=== PATIENT | male | born 1950 | race African-American/Black ===

== ENCOUNTER 2019-12-26 07:59 | Emergency (ER) | payer MEDICARE ==
[~2019-12-26] VITALS: Ht 185.4 cm; Wt 94.2 kg
--- NOTE | 2019-12-26 08:19 | NUR ---
69 Y/O MALE PRESENTS TO ED WITH C/O BILATERAL LOWER LEG EDEMA. PER PT "IT'S BEEN GETTING MORE SWOLLEN FOR ABOUT A WEEK. MY RIGHT LEG DOESN'T HURT. BUT MY LEFT ONE HURTS BEHIND MY KNEE." NO C/O N/V/D, TRAUMA, SYNCOPE, CP, SOB. EDPA BEDSIDE. PT PLACED ON CONT PULSE OX,NIBP. PT GIVEN WARM BLANKETS. CALL LIGHT WITHIN REACH. NO OTHER NEEDS REQUESTED AT THIS TIME.
[2019-12-26 08:47] LABS: ALANINE AMINOTRANSFERASE 30 U/L (12-78); ALBUMIN 3.2 g/dL (3.4-5.0); ANION GAP 7 mmol/L (5-15); CALCIUM 8.7 mg/dL (8.5-10.1); CHLORIDE 108 mmol/L (98-107); CREATININE 1.09 mg/dL (0.7-1.3)
[2019-12-26 08:48] LABS: BASOPHILS # (AUTO) 0.02 x10^3/uL (0-0.1); BASOPHILS % (AUTO) 0 % (0-1); EOSINOPHILS # (AUTO) 0.15 x10^3/uL (0-0.4); EOSINOPHILS % (AUTO) 2 % (1-7); LYMPHOCYTES # (AUTO) 1.94 x10^3/uL (1-3.4); LYMPHOCYTES % (AUTO) 19 % (22-44); MD NO; MEAN CORPUSCULAR HEMOGLOBIN 29.4 pg (27.5-34.5); MEAN CORPUSCULAR HGB CONC 32.1 g/dL (33.2-36.2); MEAN PLATELET VOLUME 7.3 fL (7.4-10.4); MONOCYTES # (AUTO) 1.05 x10^3/uL (0.2-0.8); MONOCYTES % (AUTO) 10 % (2-9); NEUTROPHILS # (AUTO) 6.99 x10^3/uL (1.8-6.8); NEUTROPHILS % (AUTO) 69 % (42-75); PLATELET COUNT 225 x10^3/uL (130-400); RED BLOOD COUNT 5.04 x10^6/uL (4.38-5.82)
[2019-12-26 08:51] LABS: ALKALINE PHOSPHATASE 102 U/L (45-117); BILIRUBIN,TOTAL 0.8 mg/dL (0.2-1.0); TOTAL PROTEIN 7.8 g/dL (6.4-8.2)
--- NOTE | 2019-12-26 09:00 | NUR ---
PT OUT OF ROOM AT IMAGING
--- NOTE | 2019-12-26 09:29 | NUR ---
PT BACK FROM IMAGING
[2019-12-26 09:46] VITALS: BP 138/93
--- NOTE | 2019-12-26 09:46 | NUR ---
PT RESTING ON GURNEY. KOTHARI. PT STATES ULTRASOUND HAS BEEN DONE AND XRAYS. VSS. NO NEEDS REQUESTED AT THIS TIME.
[2019-12-26] MEDS ORDERED: LIDOCAINE-MPF 1%, 5ML ONE (10:04)
--- NOTE | 2019-12-26 10:37 | NUR ---
PT RESTING ON GURNEY. PT READY FOR ARTHROCENTISIS. NADN. NO OTHER NEEDS REQUESTED AT THIS TIME.
--- NOTE | 2019-12-26 11:19 | NUR ---
pt given cane. pt educated regarding use. pt provides excellent demonstration skills. pt ambulatory with steady gait using cane. Patient/Caregiver given discharge instructions and they have confirmed that they understand the instructions. pt left with all personal belongings.
== END 2019-12-26 11:26 | disposition home or self-care (01) ==
LOC: ED 10:17
DX: M25.462 Effusion, left knee (principal); R60.0 Localized edema; R94.31 Abnormal electrocardiogram [ECG] [EKG]; I10 Essential (primary) hypertension; E11.9 Type 2 diabetes mellitus without complications; E78.00 Pure hypercholesterolemia, unspecified
CPT/HCPCS: 20610; 36415; 80053; 83880; 85025; 93005; 99285

== ENCOUNTER 2020-01-09 09:20 | Emergency (ER) | payer MEDICARE ==
[~2020-01-09] VITALS: Ht 185.4 cm; Wt 93.2 kg
[2020-01-09 09:22] VITALS: BP 120/75
--- NOTE | 2020-01-09 09:39 | NUR ---
FIRST CONTACT WITH PT. PT C/O LEFT KNEE SWELLING. SEEN APPROX 2 WEEKS AGO FOR SAME. "DRAINED KNEE" PT DENIES ANY OTHER SX. PT'S AOX4. RESPS EVEN AND UNLABORED. EDMD AT BEDSIDE EVALUATING AT THIS TIME.
--- NOTE | 2020-01-09 10:03 | NUR ---
Patient given discharge instructions and they have confirmed that they understand the instructions. Patient ambulatory with steady gait.
== END 2020-01-09 10:04 | disposition home or self-care (01) ==
LOC: ED 09:50
DX: G89.29 Other chronic pain (principal); M13.162 Monoarthritis, not elsewhere classified, left knee; I10 Essential (primary) hypertension; E11.9 Type 2 diabetes mellitus without complications
CPT/HCPCS: 99282

== ENCOUNTER 2020-06-26 09:47 | Emergency (ER) | payer MEDICARE, OTHER ==
[~2020-06-26] VITALS: Ht 185.4 cm; Wt 102.7 kg
--- NOTE | 2020-06-26 10:17 | NUR ---
Pt ambulatory to bathroom for UA with steady gait.
[2020-06-26 10:24] LABS: BASOPHILS % (AUTO) 1 % (0-1); EOSINOPHILS % (AUTO) 3 % (1-7); LYMPHOCYTES % (AUTO) 25 % (22-44); MEAN CORPUSCULAR HEMOGLOBIN 29.1 pg (27.5-34.5); MEAN CORPUSCULAR HGB CONC 33.3 g/dL (33.2-36.2); MEAN PLATELET VOLUME 7.1 fL (7.4-10.4); MONOCYTES % (AUTO) 10 % (2-9); NEUTROPHILS % (AUTO) 61 % (42-75); PLATELET COUNT 262 x10^3/uL (130-400); RED BLOOD COUNT 5.39 x10^6/uL (4.38-5.82); RED CELL DISTRIBUTION WIDTH 15.1 % (9.4-14.8)
--- NOTE | 2020-06-26 10:25 | NUR ---
Pt denies any symptoms besides gaining weight. State prior to COVID lock-down he would go to the gym 5 days a week to swim, "COVID's made me lazy." Pt connected to BP and O2 monitors. Call light in reach. All needs met at this time.
[2020-06-26 10:26] LABS: MD NO
[2020-06-26 10:38] LABS: ALBUMIN 3.6 g/dL (3.4-5.0); CALCIUM 9.2 mg/dL (8.5-10.1)
[2020-06-26 10:38] LABS: MICROSCOPIC INDICATED
[2020-06-26 10:41] LABS: ALANINE AMINOTRANSFERASE 35 U/L (12-78); ALKALINE PHOSPHATASE 98 U/L (45-117); BILIRUBIN,TOTAL 0.8 mg/dL (0.2-1.0); CREATININE 1.19 mg/dL (0.7-1.3); TOTAL PROTEIN 8.2 g/dL (6.4-8.2)
[2020-06-26 10:49] LABS: ANION GAP 7 mmol/L (5-15); CHLORIDE 106 mmol/L (98-107)
[2020-06-26 12:30] VITALS: BP 165/97
[2020-06-26] MEDS ORDERED: OMNIPAQUE 350 MG/ML, 100ML BOTTLE ONE (12:44)
== END 2020-06-26 12:31 | disposition home or self-care (01) ==
LOC: ED 10:36
DX: R63.5 Abnormal weight gain (principal); Z68.29 Body mass index [BMI] 29.0-29.9, adult
CPT/HCPCS: 36415; 74177; 80053; 81001; 83690; 85025; 99284; Q9967

== ENCOUNTER 2021-02-11 08:38 | Inpatient (IN) | payer OTHER ==
[~2021-02-11] VITALS: Ht 190.5 cm; Wt 96.8 kg
[2021-02-11] MEDS ORDERED: DILTIAZEM 5 MG/ML, 5ML ONE (09:19)
[2021-02-11] MEDS ORDERED: ASPIRIN 81 MG TABLET CHEW ONE (09:19)
--- NOTE | 2021-02-11 09:22 | NUR ---
FIRST CONTACT: PT HERE WITH AFIB RVR STARTED MIDDLE OF NIGHT. PT TO ROOM WITH STEADY GAIT. ATTACHED TO MONITORS. DR. HARRIS TO BEDSIDE FOR EVALUATION. THIS RN TO PUSH 20 MG OF DILT.
[2021-02-11] MEDS ORDERED: SODIUM CHLORIDE FLUSH 10ML SYR IVF ONE (09:30)
[2021-02-11] MEDS ORDERED: DILTIAZEM 5 MG/ML, 5ML IV ONE (09:30)
[2021-02-11] MEDS ORDERED: ASPIRIN 81 MG TABLET CHEW PO ONE (09:30)
[2021-02-11 09:53] LABS: BASOPHILS % (AUTO) 1 % (0-1); EOSINOPHILS % (AUTO) 1 % (1-7); LYMPHOCYTES % (AUTO) 16 % (22-44); MEAN CORPUSCULAR HEMOGLOBIN 29.9 pg (27.5-34.5); MEAN CORPUSCULAR HGB CONC 33.2 g/dL (33.2-36.2); MEAN PLATELET VOLUME 7.9 fL (7.4-10.4); MONOCYTES % (AUTO) 10 % (2-9); NEUTROPHILS % (AUTO) 72 % (42-75); PLATELET COUNT 194 x10^3/uL (130-400); RED BLOOD COUNT 5.32 x10^6/uL (4.38-5.82); RED CELL DISTRIBUTION WIDTH 14.8 % (9.4-14.8)
[2021-02-11 10:02] LABS: ALANINE AMINOTRANSFERASE 56 U/L (12-78); ALBUMIN 3.5 g/dL (3.4-5.0); ANION GAP 8 mmol/L (5-15); CALCIUM 9.3 mg/dL (8.5-10.1); CHLORIDE 106 mmol/L (98-107); CREATININE 1.07 mg/dL (0.7-1.3)
[2021-02-11 10:07] LABS: ALKALINE PHOSPHATASE 100 U/L (45-117); BILIRUBIN,TOTAL 1.3 mg/dL (0.2-1.0); TOTAL PROTEIN 7.9 g/dL (6.4-8.2); TROPONIN I 0.061 ng/mL (0.000-0.045)
[2021-02-11] MEDS ORDERED: FUROSEMIDE 40 MG/4 ML IV ONE (10:30)
[2021-02-11] MEDS ORDERED: SODIUM CHLORIDE FLUSH 10ML SYR IVF PRN (10:30)
[2021-02-11] MEDS ORDERED: Enoxaparin 1 mg/kg protocol SQ SCH (10:30)
[2021-02-11] MEDS ORDERED: BISACODYL 5 MG EC TABLET PO PRN (11:00)
[2021-02-11] MEDS ORDERED: BISACODYL 10 MG SUPP PR PRN (11:00)
[2021-02-11] MEDS ORDERED: ENOXAPARIN 100 MG/ML SQ SCH ×2 (11:00→23:00)
[2021-02-11] MEDS ORDERED: ONDANSETRON 2MG/ML, 2ML IV PRN (11:00)
[2021-02-11] MEDS ORDERED: DILTIAZEM 125 MG in SODIUM CHLORIDE 0.9% 100 ML IV PRN (11:00)
[2021-02-11] MEDS ORDERED: ACETAMINOPHEN 650 MG/20.3 ML UDC PO PRN (11:00)
--- NOTE | 2021-02-11 11:04 | NUR ---
hospitalist at bedside. yellow med req slip send to pharm for dilt gtt.
[2021-02-11] MEDS ORDERED: ENOXAPARIN 100 MG/ML ONE (11:05)
[2021-02-11 11:37] LABS: CHOL/HDL RATIO 2.8; FREE T4 (FREE THYROXINE) 1.19 ng/dL (0.76-1.46); LDL/HDL RATIO 1.4 (0.5-3.0)
--- NOTE | 2021-02-11 12:14 | NUR ---
dilt gtt icreased to 6 mg. hr 130's
--- NOTE | 2021-02-11 13:05 | NUR ---
dilt gtt increased to 7mg
--- NOTE | 2021-02-11 14:42 | NUR ---
report called to leisa estrada.
[2021-02-11 16:27] VITALS: BP 163/99
[2021-02-11] MEDS ORDERED: EMTR1TAB14 PO (16:35)
[2021-02-11] MEDS ORDERED: LISI-606 PO (16:35)
[2021-02-11] MEDS ORDERED: DOLU50TA PO (16:35)
[2021-02-11 19:09] LABS: TROPONIN I 0.037 ng/mL (0.000-0.045)
[2021-02-11] MEDS: SODIUM CHLORIDE FLUSH 10ML SYR IVF SCH (20:50)
[2021-02-11 21:17] VITALS: BP 171/103
[2021-02-12 00:40] VITALS: BP 164/111
[2021-02-12] MEDS ORDERED: LISINOPRIL 5 MG TABLET PO SCH (01:00)
[2021-02-12 06:09] LABS: CHLORIDE 108 mmol/L (98-107)
[2021-02-12 06:18] LABS: ALANINE AMINOTRANSFERASE 48 U/L (12-78); ALBUMIN 2.9 g/dL (3.4-5.0); ALKALINE PHOSPHATASE 85 U/L (45-117); ANION GAP 9 mmol/L (5-15); BILIRUBIN,TOTAL 1.5 mg/dL (0.2-1.0); CALCIUM 8.8 mg/dL (8.5-10.1); CREATININE 0.79 mg/dL (0.7-1.3); TOTAL PROTEIN 6.9 g/dL (6.4-8.2)
[2021-02-12 08:58] VITALS: BP 148/92
[2021-02-12] MEDS: APIXABAN 5 MG TABLET PO SCH ×2 (09:51→20:06)
[2021-02-12] MEDS: ASPIRIN 325 MG TABLET EC PO SCH (09:51)
[2021-02-12] MEDS: FUROSEMIDE 40 MG TABLET PO SCH (09:51)
[2021-02-12] MEDS: DILTIAZEM 120 MG TABLET PO SCH ×2 (09:51→20:06)
[2021-02-12] MEDS: LISINOPRIL 20 MG TABLET PO SCH (09:51)
[2021-02-12] MEDS: SODIUM CHLORIDE FLUSH 10ML SYR IVF SCH ×2 (09:52→20:09)
[2021-02-12] MEDS: DOLUTEGRAVIR 50MG TAB PO SCH (09:52)
[2021-02-12] MEDS: EMTRICITABINE/TEN. ALAFE. 200-25 TAB PO SCH (09:52)
[2021-02-12] MEDS ORDERED: DILTIAZEM 125 MG in SODIUM CHLORIDE 0.9% 100 ML IV PRN ×2 (11:00)
[2021-02-12 14:10] VITALS: BP 137/80
[2021-02-12] MEDS ORDERED: POTASSIUM CHLORIDE 20 MEQ PACKET PO SCH (16:00)
[2021-02-12 20:02] VITALS: BP 161/84
[2021-02-12] MEDS: MAGNESIUM OXIDE 400 MG TABLET PO SCH (20:06)
[2021-02-13 00:44] VITALS: BP 128/76
[2021-02-13 05:55] LABS: BASOPHILS % (AUTO) 1 % (0-1); EOSINOPHILS % (AUTO) 2 % (1-7); LYMPHOCYTES % (AUTO) 18 % (22-44); MEAN CORPUSCULAR HEMOGLOBIN 29.9 pg (27.5-34.5); MEAN PLATELET VOLUME 7.4 fL (7.4-10.4); MONOCYTES % (AUTO) 12 % (2-9); NEUTROPHILS % (AUTO) 68 % (42-75); PLATELET COUNT 185 x10^3/uL (130-400); RED CELL DISTRIBUTION WIDTH 14.6 % (9.4-14.8)
[2021-02-13 06:05] LABS: ANION GAP 7 mmol/L (5-15); CALCIUM 8.3 mg/dL (8.5-10.1); CHLORIDE 106 mmol/L (98-107)
[2021-02-13] MEDS ORDERED: APIX5TAB PO (07:16)
[2021-02-13] MEDS ORDERED: LISI-170 PO (07:16)
[2021-02-13] MEDS ORDERED: DILT120T3 PO (07:16)
[2021-02-13 07:21] VITALS: BP 117/79
[2021-02-13] MEDS: DILTIAZEM 120 MG TABLET PO SCH (08:27)
[2021-02-13] MEDS: LISINOPRIL 20 MG TABLET PO SCH (08:27)
[2021-02-13] MEDS: MAGNESIUM OXIDE 400 MG TABLET PO SCH (08:27)
[2021-02-13] MEDS: EMTRICITABINE/TEN. ALAFE. 200-25 TAB PO SCH (08:28)
[2021-02-13] MEDS: DOLUTEGRAVIR 50MG TAB PO SCH (08:28)
[2021-02-13] MEDS: ASPIRIN 325 MG TABLET EC PO SCH (08:28)
[2021-02-13] MEDS: APIXABAN 5 MG TABLET PO SCH (08:28)
[2021-02-13] MEDS: SODIUM CHLORIDE FLUSH 10ML SYR IVF SCH (08:29)
[2021-02-13] MEDS: FUROSEMIDE 40 MG TABLET PO SCH (08:29)
[2021-02-13] MEDS ORDERED: FURO-93 PO (15:55)
[2021-02-13] MEDS ORDERED: ATOR20TA86 PO (15:55)
[2021-02-13] MEDS ORDERED: POTA20TA14 PO (15:55)
== END 2021-02-13 09:08 | disposition home or self-care (01) | DRG 308 ==
LOC: ED 09:00 → EDIP 10:49 → 5SO 15:36
PROVIDERS: ADMIT Family Medicine; ATTEND Family Medicine
DX: I48.91 Unspecified atrial fibrillation (principal); I50.21 Acute systolic (congestive) heart failure; Z21 Asymptomatic human immunodeficiency virus [HIV] infection status; E11.9 Type 2 diabetes mellitus without complications; E66.9 Obesity, unspecified; E83.42 Hypomagnesemia; I11.0 Hypertensive heart disease with heart failure; E87.6 Hypokalemia; Z68.26 Body mass index [BMI] 26.0-26.9, adult
CPT/HCPCS: 36415; 71045; 80048; 80053; 80061; 83036; 83735; 83880; 84100; 84439; 84443; 84484; 85025; 93005; 93306; 96372; 96374; G0378; J1650; J1940